=== PATIENT | female | born 1990 | race African-American/Black ===

== ENCOUNTER 2024-06-02 11:44 | Emergency (ER) | payer OTHER ==
[~2024-06-02] VITALS: Ht 175.3 cm; Wt 70.0 kg
[2024-06-02 12:06] VITALS: O2SAT 99
[2024-06-02 14:51] LABS: BASOPHILS % 0.8 % (0.0-2.0); EOSINOPHILS % 1.3 % (0.0-5.0); HEMATOCRIT. 46.7 % (36.0-48.0); HEMOGLOBIN. 15.3 g/dL (12.0-16.0); LYMPHOCYTES % 27.8 % (20.0-50.0); MEAN CORPUSCULAR HEMOGLOBIN 28.3 pg (28.0-32.0); MEAN CORPUSCULAR HGB CONC 32.7 g/dL (31.0-37.0); MEAN CORPUSCULAR VOLUME 86.7 fL (81.0-99.0); MEAN PLATELET VOLUME 8.6 fl (7.4-10.4); MONOCYTES % 7.2 % (2.0-8.0); NEUTROPHILS % 62.9 % (40.0-76.0); PLATELET 235 x1000/uL (130-400); RED BLOOD CELL COUNT 5.39 mill/uL (4.2-5.4); RED CELL DISTRIBUTION WIDTH 13.7 % (11.6-14.6)
[2024-06-02 14:56] LABS: CHLORIDE 108 mEq/L (98-107); POTASSIUM 3.7 mEq/L (3.5-5.1); SODIUM 140 mEq/L (136-145)
[2024-06-02 14:57] LABS: CALCIUM 10.1 mg/dL (8.7-10.4); CARBON DIOXIDE 21 mEq/L (21-32)
[2024-06-02 15:02] LABS: CREATININE 0.7 mg/dL (0.6-1.0); GLUCOSE 93 mg/dL (70-105); UREA NITROGEN BLOOD 10 mg/dL (9-23)
[2024-06-02 15:04] LABS: ALANINE AMINOTRANSFERASE 9 IU/L (10-49); ALBUMIN 4.9 g/dL (3.2-4.8); ASPARTATE AMINOTRANSFERASE 17 IU/L (<34); BILIRUBIN TOTAL 0.5 mg/dL (0.1-1.0); PROTEIN TOTAL 8.1 g/dL (6.0-8.3)
[2024-06-02] MEDS ORDERED: CIPR2.5D17 EACHEYE (15:57)
[2024-06-02] MEDS ORDERED: TOPUD MT (15:57)
[2024-06-02] MEDS ORDERED: ACYC200C31 PO (15:57)
[2024-06-02 16:47] VITALS: BP 126/73; PULSE 98; RESP 18; TEMP 36.39180; O2SAT 99
== END 2024-06-02 16:50 | disposition home or self-care (01) ==
LOC: ER 11:44
DX: B00.59 Other herpesviral disease of eye (principal); J45.909 Unspecified asthma, uncomplicated; F32.A Depression, unspecified
CPT/HCPCS: 36415; 80053; 81025; 85025; 99283

== ENCOUNTER 2024-08-20 13:48 | Emergency (ER) | payer OTHER ==
[~2024-08-20] VITALS: Ht 172.7 cm; Wt 70.0 kg
[~2024-08-20 13:48] MED LIST: ACYC200C31 PO; CIPR2.5D17 EACHEYE; TOPUD MT
[2024-08-20 13:54] VITALS: PULSE 96; RESP 14; O2SAT 99
[2024-08-20 13:59] VITALS: BP 120/71; TEMP 37; O2SAT 100
[2024-08-20] MEDS ORDERED: P20 MT (14:12)
[2024-08-20] MEDS: IBUPROFEN 600MG TABLET PO ONE (15:08)
[2024-08-20] MEDS: PREDNISONE 20MG TABLET PO ONE (15:08)
[2024-08-20] MEDS: NAPHAZOLINE HCL/PHENIR MAL OPHTH SOLN 15ML BOTHEYE PRN (15:09)
== END 2024-08-20 15:11 | disposition home or self-care (01) ==
LOC: ER 13:48
DX: T78.40XA Allergy, unspecified, initial encounter (principal); J45.909 Unspecified asthma, uncomplicated; Y92.89 Other specified places as the place of occurrence of the external cause
CPT/HCPCS: 99284; J7512; Z7610